=== PATIENT | female | born 1945 | race Caucasian/White ===

== ENCOUNTER 2017-09-25 17:53 | Inpatient (IN) | payer MEDICARE, OTHER ==
[2017-09-25] MEDS ORDERED: SODIUM CHLORIDE 0.9% 1,000 ML IV STA (18:16)
[2017-09-25] MEDS ORDERED: ONDANSETRON 4 MG/2 ML VIAL IVP STA ×2 (18:17→21:13)
--- NOTE | 2017-09-25 18:18 | ED ---
General Adult HPI - General Source: patient, EMS, RN notes reviewed Mode of arrival: EMS Limitations: no limitations <Iker Prescott - Last Filed: 09/25/17 19:49> <Ector Carrillo - Last Filed: 09/25/17 21:18> - General Chief complaint: Nausea/Vomiting/Diarrhea Stated complaint: Nausea/Vomiting Time Seen by Provider: 09/25/17 18:09 - History of Present Illness Initial comments: Patient 72-year-old female who presents emergency room today with a chief complaint of nausea vomiting. 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 Has had this for several years. States it's working well. Denies any specific abdominal pain. Was given nausea medication by EMS. She admits little improvement. She denies any other complaints or symptoms. Denies any other sick contacts at home. Patient denies any recent fever, chills , shortness of breath, chest pain, back pain, abdominal pain, nausea or vomiting , numbness or tingling, dysuria or hematuria, constipation or diarrhea, headaches or visual changes, or any other complaints. (Iker Prescott) - Related Data Home Medications Medication Instructions Recorded Confirmed Naproxen Sodium [Aleve] 440 mg PO BID PRN 09/25/17 09/25/17 Allergies Allergy/AdvReac Type Severity Reaction Status Date / Time No Known Allergies Allergy Verified 09/25/17 19:35 Review of Systems ROS Other: All systems not noted in ROS Statement are negative. <Iker Prescott - Last Filed: 09/25/17 19:49> ROS Other: All systems not noted in ROS Statement are negative. <Ector Carrillo - Last Filed: 09/25/17 21:18> ROS Statement: Those systems with pertinent positive or pertinent negative responses have been documented in the HPI. Past Medical History Past Medical History: COPD, Hypertension Additional Past Medical History / Comment(s): colostomy "GI obstruction, ulcer. 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" History of Any Multi-Drug Resistant Organisms: None Reported Past Surgical History: Appendectomy, Cholecystectomy, Tonsillectomy Additional Past Surgical History / Comment(s): colostomy Past Psychological History: No Psychological Hx Reported Smoking Status: Current every day smoker Past Alcohol Use History: None Reported Past Drug Use History: None Reported - Past Family History Mother Family Medical History: Diabetes Mellitus, Hypertension Father Family Medical History: Diabetes Mellitus <Iker Prescott - Last Filed: 09/25/17 19:49> General Exam Limitations: no limitations <Ikre Prescott - Last Filed: 09/25/17 19:49> <Ector Carrillo - Last Filed: 09/25/17 21:18> - General Exam Comments Initial Comments: General: The patient is awake and alert, in no distress, and does not appear acutely ill. Eye: Pupils are equal, round and reactive to light, extra-ocular movements are intact. No nystagmus. There is normal conjunctiva bilaterally. No signs of icterus. Ears, nose, mouth and throat: There are moist mucous membranes and no oral lesions. Neck: The neck is supple, there is no tenderness or JVD. Cardiovascular: There is a regular rate and rhythm. No murmur, rub or gallop is appreciated. Respiratory: Lungs are clear to auscultation, respirations are non-labored, breath sounds are equal. No wheezes, stridor, rales, or rhonchi. Gastrointestinal: Soft, non-distended, non-tender abdomen without masses or organomegaly noted. Colostomy located on the left functioning no sign of redness or swelling around it. There is no rebound or guarding present. No CVA tenderness. Bowel sounds are unremarkable. Musculoskeletal: Normal ROM, no tenderness. Strength 5/5. Sensation intact. Pulses equal bilaterally 2+. Neurological: A&O x 3. CN II-XII intact, There are no obvious motor or sensory deficits. Coordination appears grossly intact. Speech is normal. Skin: Skin is warm and dry and no rashes or lesions are noted. Psychiatric: Cooperative, appropriate mood & affect, normal judgment. (Iker Prescott) Course <Iker Prescott - Last Filed: 09/25/17 19:49> <Ector Carrillo - Last Filed: 09/25/17 21:18> Vital Signs 09/25/17 09/25/17 18:08 19:15 Temperature 97.2 F L Pulse Rate 97 94 Respiratory 18 18 Rate Blood Pressure 156/72 156/90 O2 Sat by Pulse 95 100 Oximetry - Reevaluation(s) Reevaluation #1: 09/25/17 19:50 Case discussed and signed out to Dr Carrillo. Patient's labs currently pending. ( Iker Prescott) EKG Findings - EKG Comments: EKG Findings:: EKG performed at 1920: A 12-lead EKG was performed and interpreted by me as showing the following: Rate is 97, and rhythm is normal sinus. There are normal QRS complexes and normal R-wave progression. ST segments have no elevation or depression, and NV segments appear normal. <Iker Prescott - Last Filed: 09/25/17 19:49> Medical Decision Making <Iker Prescott - Last Filed: 09/25/17 19:49> - Lab Data Result diagrams: 09/25/17 19:51 09/25/17 00:34 <Ector Carrillo - Last Filed: 09/25/17 21:18> - Medical Decision Making Medical decision making; 71-year-old female was a colostomy. She been having nausea and vomiting for several days. Patient complains of feeling weak. The patient's labs show white count 16,000. Her sodium is only 114 chloride 70. Potassium 3.3 and CO2 is 33. Amylase lipase normal limits. Normal plasma lactic acid. BUN 15 creatinine 0.4 and GFR greater than 60. Patient's glucose 95. Troponin less than 0.012. Patient is receiving rehydration including extra potassium. Patient states that she's having stool through the colostomy. Patient states since having the colostomy she does not have stool per rectum. Patient be admitted to Dr. Mora are on-call for Dr. Adorno (Ector Carrillo) - Lab Data Lab Results 09/25/17 09/25/17 09/25/17 Range/Units 00:34 19:51 19:51 WBC 16.0 H (3.8-10.6) k/uL RBC 4.81 (3.80-5.40) m/uL Hgb 12.6 (11.4-16.0) gm/dL Hct 38.0 (34.0-46.0) % MCV 79.1 L (80.0-100.0) fL MCH 26.2 (25.0-35.0) pg MCHC 33.1 (31.0-37.0) g/dL RDW 14.6 (11.5-15.5) % Plt Count 278 (150-450) k/uL Neutrophils % 86 % Lymphocytes % 6 % Monocytes % 6 % Eosinophils % 1 % Basophils % 0 % Neutrophils # 13.8 H (1.3-7.7) k/uL Lymphocytes # 0.9 L (1.0-4.8) k/uL Monocytes # 1.0 (0-1.0) k/uL Eosinophils # 0.2 (0-0.7) k/uL Basophils # 0.0 (0-0.2) k/uL Sodium 114 L* (137-145) mmol/L Potassium 3.3 L (3.5-5.1) mmol/L Chloride 70 L* (98-107) mmol/L Carbon Dioxide 33 H (22-30) mmol/L Anion Gap 11 mmol/L BUN 15 (7-17) mg/dL Creatinine 0.40 L (0.52-1.04) mg/dL Est GFR (MDRD) Af Amer >60 (>60 ml/min/1.73 sqM) Est GFR (MDRD) Non-Af >60 (>60 ml/min/1.73 sqM) Glucose 95 (74-99) mg/dL Plasma Lactic Acid Francisco 0.6 L (0.7-2.0) mmol/L Calcium 8.4 (8.4-10.2) mg/dL Total Bilirubin 1.3 (0.2-1.3) mg/dL AST 18 (14-36) U/L ALT 16 (9-52) U/L Alkaline Phosphatase 104 (38-126) U/L Total Creatine Kinase (30-135) U/L CK-MB (CK-2) (0.0-2.4) ng/mL CK-MB (CK-2) Rel Index Troponin I (0.000-0.034) ng/mL Total Protein 5.6 L (6.3-8.2) g/dL Albumin 2.9 L (3.5-5.0) g/dL Amylase <30 L (30-110) U/L Lipase <10 L (23-300) U/L 09/25/17 Range/Units 19:51 WBC (3.8-10.6) k/uL RBC (3.80-5.40) m/uL Hgb (11.4-16.0) gm/dL Hct (34.0-46.0) % MCV (80.0-100.0) fL MCH (25.0-35.0) pg MCHC (31.0-37.0) g/dL RDW (11.5-15.5) % Plt Count (150-450) k/uL Neutrophils % % Lymphocytes % % Monocytes % % Eosinophils % % Basophils % % Neutrophils # (1.3-7.7) k/uL Lymphocytes # (1.0-4.8) k/uL Monocytes # (0-1.0) k/uL Eosinophils # (0-0.7) k/uL Basophils # (0-0.2) k/uL Sodium (137-145) mmol/L Potassium (3.5-5.1) mmol/L Chloride (98-107) mmol/L Carbon Dioxide (22-30) mmol/L Anion Gap mmol/L BUN (7-17) mg/dL Creatinine (0.52-1.04) mg/dL Est GFR (MDRD) Af Amer (>60 ml/min/1.73 sqM) Est GFR (MDRD) Non-Af (>60 ml/min/1.73 sqM) Glucose (74-99) mg/dL Plasma Lactic Acid Francisco (0.7-2.0) mmol/L Calcium (8.4-10.2) mg/dL Total Bilirubin (0.2-1.3) mg/dL AST (14-36) U/L ALT (9-52) U/L Alkaline Phosphatase (38-126) U/L Total Creatine Kinase 31 (30-135) U/L CK-MB (CK-2) 1.7 (0.0-2.4) ng/mL CK-MB (CK-2) Rel Index 5.5 Troponin I <0.012 (0.000-0.034) ng/mL Total Protein (6.3-8.2) g/dL Albumin (3.5-5.0) g/dL Amylase (30-110) U/L Lipase (23-300) U/L Disposition <Iker Prescott - Last Filed: 09/25/17 19:49> <Ector Carrillo - Last Filed: 09/25/17 21:18> Clinical Impression: Electrolyte imbalance, Nausea and vomiting Disposition: ADMITTED IP TO THIS HOSP Condition: Fair Referrals: Maggy Adorno DO [Primary Care Provider] - 1-2 days
--- NOTE | 2017-09-25 19:36 | XR ---
EXAMINATION TYPE: XR KUB DATE OF EXAM: 09/25/2017 7:31 PM CLINICAL HISTORY: Abdominal pain TECHNIQUE: Single upright image of the abdomen is obtained. COMPARISON: 05/15/2016. FINDINGS: Cholecystectomy clips reside within the right upper quadrant. Scattered gas is seen in non- distended small bowel loops. Gas and fecal material is seen in non-distended colon. Distal colonic ai r-fluid level is seen with copious amount of stool within the distal sigmoid colon and rectum. There is no visceromegaly, pneumoperitoneum, or abnormal calcification appreciated. The lung bases are geraldine r and the osseous structures are intact. IMPRESSION: Skull base amount of stool within the distal sigmoid colon and rectum without proximal di latation to suggest obstruction. Constipation/rectal fecal impaction is suspected.
[2017-09-25 20:11] LABS: Basophils % (A) 0 %; Eosinophils # (A) 0.2 k/uL (0-0.7); Eosinophils % (A) 1 %; HGB 12.6 gm/dL (11.4-16.0); Lymphocytes # (A) 0.9 k/uL (1.0-4.8); Lymphocytes % (A) 6 %; MCH 26.2 pg (25.0-35.0); MCHC 33.1 g/dL (31.0-37.0); MCV 79.1 fL (80.0-100.0); Mean Platelet Volume 6.8; Monocytes % (A) 6 %; Neutrophils # (A) 13.8 k/uL (1.3-7.7); Neutrophils % (A) 86 %; Platelet Count 278 k/uL (150-450); RBC 4.81 m/uL (3.80-5.40); RDW 14.6 % (11.5-15.5)
[2017-09-25 20:31] LABS: Creatine Kinase 31 U/L (30-135)
[2017-09-25 20:33] LABS: ALT 16 U/L (9-52); AST 18 U/L (14-36); Albumin 2.9 g/dL (3.5-5.0); Alkaline Phosphatase 104 U/L (38-126); Amylase <30 U/L (30-110); Anion Gap 11 mmol/L; Blood Urea Nitrogen 15 mg/dL (7-17); Calcium 8.4 mg/dL (8.4-10.2); Carbon Dioxide 33 mmol/L (22-30); Glucose 95 mg/dL (74-99); Lipase <10 U/L (23-300); Potassium 3.3 mmol/L (3.5-5.1); Total Bilirubin 1.3 mg/dL (0.2-1.3); Total Protein 5.6 g/dL (6.3-8.2)
[2017-09-25 20:43] LABS: Creatine Kinase MB 1.7 ng/mL (0.0-2.4); Troponin I <0.012 ng/mL (0.000-0.034)
[2017-09-25 20:53] LABS: Chloride 70 mmol/L (98-107); Sodium 114 mmol/L (137-145)
[2017-09-25] MEDS ORDERED: HYDROmorphone 0.5 MG/0.5 ML SYRINGE IVP STA (21:12)
[2017-09-25] MEDS ORDERED: POTASSIUM CHLORIDE 20 MEQ in WATER FOR INJECTION 1 100ML.BAG IVPB STA (21:16)
[2017-09-25] MEDS ORDERED: NALOXONE 0.4 MG/ML 1 ML VIAL IV PRN (21:18)
[2017-09-25] MEDS ORDERED: ONDANSETRON 4 MG/2 ML VIAL IVP PRN (21:18)
[2017-09-26] MEDS: PANTOPRAZOLE 40 MG/10 ML VIAL IV SCH ×2 (01:06→08:37)
[2017-09-26] MEDS: SODIUM CHLORIDE 0.9% 1,000 ML IV SCH ×3 (01:10→16:02)
[2017-09-26 01:28] LABS: Anion Gap 9 mmol/L; Blood Urea Nitrogen 15 mg/dL (7-17); Calcium 8.4 mg/dL (8.4-10.2); Carbon Dioxide 33 mmol/L (22-30); Glucose 91 mg/dL (74-99); Potassium 3.8 mmol/L (3.5-5.1)
[2017-09-26 01:32] LABS: Sodium 114 mmol/L (137-145)
[2017-09-26 01:33] LABS: Chloride 72 mmol/L (98-107)
[2017-09-26 01:38] VITALS: BMI 27.4
[2017-09-26 06:31] LABS: Basophils % (A) 0 %; Eosinophils % (A) 0 %; HCT 37.5 % (34.0-46.0); HGB 12.4 gm/dL (11.4-16.0); Lymphocytes # (A) 0.8 k/uL (1.0-4.8); Lymphocytes % (A) 6 %; MCH 26.7 pg (25.0-35.0); MCV 80.9 fL (80.0-100.0); Mean Platelet Volume 7.1; Monocytes # (A) 0.9 k/uL (0-1.0); Monocytes % (A) 7 %; Neutrophils # (A) 11.8 k/uL (1.3-7.7); Neutrophils % (A) 86 %; Platelet Count 331 k/uL (150-450); RBC 4.63 m/uL (3.80-5.40); WBC 13.8 k/uL (3.8-10.6)
[2017-09-26 07:10] LABS: Appearance,Urine Clear (Clear); Bacteria,Urine Rare /hpf; Bilirubin,Urine Negative (Negative); Blood,Urine Negative (Negative); Color,Urine Yellow; Glucose,Urine (UA) Negative (Negative); Ketones,Urine 3+ (Negative); Leukocyte Esterase,Urine Moderate (Negative); Mucus,Urine Moderate /hpf; Nitrite,Urine Negative (Negative); PH, Urine 6.5 (5.0-8.0); Protein,Urine 1+ (Negative); RBC,Urine 3 /hpf (0-5); Specific Gravity,Urine 1.019 (1.001-1.035); Squamous Epithelial Cell,Urine 2 /hpf (0-4); WBC,Urine 29 /hpf (0-5)
[2017-09-26 09:54] LABS: Anion Gap 8 mmol/L; Blood Urea Nitrogen 12 mg/dL (7-17); Calcium 8.1 mg/dL (8.4-10.2); Carbon Dioxide 31 mmol/L (22-30); Glucose 78 mg/dL (74-99); Potassium 3.7 mmol/L (3.5-5.1)
[2017-09-26 10:04] LABS: Chloride 76 mmol/L (98-107); Sodium 115 mmol/L (137-145)
--- NOTE | 2017-09-26 11:16 | P.NPCON ---
History of Present Illness - Reason for Consult hyponatremia - History of Present Illness Reason for consultation: Hyponatremia History of present illness: Patient is a 72-year-old female seen in renal consultation for hyponatremia. Patient presented to the hospital early childhood special educator on September 25 and her sodium level was noted to be low at 114. She was also hypokalemic with potassium level of 3.3. Patient presented to the hospital with nausea and vomiting going on for about 3 days prior to admission. Patient states she was able to eat much but she was drinking about 4 glasses of water every day. She has been voiding. No hematuria or dysuria. She denies any prior history of kidney disease. She did receive a normal saline bolus and was subsequently started on normal saline at 100 mL an hour. Sodium level has only come up to 115 as of this morning. She is currently on a clear liquid diet. She denies any further vomiting. Her creatinine is stable at 0.32 today. Potassium level is up to 3.7. I don't see any diuretics and her home medications. Patient does have a colostomy in place and denies any significant watery output. Patient states is more like formed stool. Vital signs are stable. General: The patient appeared well nourished and normally developed. HEENT: Head exam is unremarkable. Neck is without jugular venous distension. LUNGS: Lungs are clear to auscultation and percussion. Breath sounds decreased. HEART: Rate and Rhythm are regular. First and second heart sounds normal. No murmurs, rubs or gallops. ABDOMEN: Abdominal exam reveals normal bowel sounds. Non-tender and non- distended. No evidence of peritonitis. EXTREMITITES: No clubbing, cyanosis, or edema. Past Medical History Past Medical History: COPD, Hypertension Additional Past Medical History / Comment(s): colostomy "GI obstruction, ulcer. 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" History of Any Multi-Drug Resistant Organisms: None Reported Past Surgical History: Appendectomy, Cholecystectomy, Tonsillectomy Additional Past Surgical History / Comment(s): colostomy Past Psychological History: No Psychological Hx Reported Smoking Status: Current every day smoker Past Alcohol Use History: None Reported Past Drug Use History: None Reported - Past Family History Mother Family Medical History: Diabetes Mellitus, Hypertension Father Family Medical History: Diabetes Mellitus Medications and Allergies Home Medications Medication Instructions Recorded Confirmed Type Naproxen Sodium [Aleve] 440 mg PO BID PRN 09/25/17 09/25/17 History Allergies Allergy/AdvReac Type Severity Reaction Status Date / Time No Known Allergies Allergy Verified 09/25/17 19:35 Physical Exam Vitals: Vital Signs Temp Pulse Pulse Resp BP BP Pulse Ox 09/26/17 04:00 97.8 F 80 20 162/92 97 09/26/17 00:00 96.5 F L 87 20 157/96 97 09/25/17 22:37 96.5 F L 87 20 157/91 97 09/25/17 22:00 89 18 138/81 96 09/25/17 19:15 94 18 156/90 100 09/25/17 18:08 97.2 F L 97 18 156/72 95 Intake and Output 09/25/17 09/26/17 09/26/17 22:59 06:59 14:59 Intake Total 940 Output Total 300 Balance 640 Intake: IV 240 Invasive Line 1 240 Intake, IV Titration 700 Amount Sodium Chloride 0.9% 1, 700 000 ml @ 100 mls/hr IV . Q10H [facility] Rx#:[id number] Output: Urine 300 Other: Voiding Method Toilet # Voids 0 Weight 79.5 kg 72.7 kg Results - Lab Results Most recent lab results Calcium 8.1 mg/dL (8.4-10.2) L 09/26/17 09:14 09/26/17 05:57 09/26/17 09:14 Assessment and Plan Plan: Assessment: #1. Hypovolemic hyponatremia secondary to vomiting and poor oral intake. Furthermore she's been drinking quite a bit of water. Sodium level was 114 on admission and is up to 115 this morning. She is currently on a clear liquid diet. #2. Hyperkalemia from poor nutritional status and vomiting leading to renal potassium wasting. Improved post replacement. #3. Pyuria. #4. Nausea and vomiting possibly related to gastroenteritis. Plan: Continue normal saline to be run at 100 mL an hour. Check urine sodium, serum and urine osmolality. Check urine culture. Check sodium level at 2 PM today. Gen. surgery following. Diet to be advanced per their recommendations. Thank you for the consultation. I will continue to follow the patient with you during her hospital stay.
--- NOTE | 2017-09-26 11:42 | P.HPIM ---
History of Present Illness H&P Date: 09/26/17 Chief Complaint: Vomiting and diarrhea 2 days This is a 72-year-old female, patient of Dr. Adorno. She has a known past medical history of hypertension, COPD, nicotine dependence, colostomy due to a previous bowel obstruction. She presents to the emergency room with complaints of vomiting and diarrhea for the past 2 days with poor oral intake. Patient is found to have a sodium level of 114. She's been placed on IV fluids. She does report she's had low sodium in the past when she had another stomach virus with vomiting and diarrhea. Nephrology and surgical service has been consulted. White count was 16 down to 13.8. Sodium has increased from 114 to 1:15. Her last colonoscopy and EGD were about a year ago. Patient reports there is no abnormal results. Patient denies any abdominal pain. Denies any fever chills or sweats. Denies any recent sick contacts or recent traveling or antibiotic use. She reports multiple episodes of vomiting and diarrhea over the last 2 days. No blood present. Denies any chest pain or shortness of breath. Denies any burning with urination. And feels that she is urinating adequately. KUB x- ray showed evidence of constipation. Review of Systems Please refer to HPI otherwise unremarkable Past Medical History Past Medical History: COPD, Hypertension Additional Past Medical History / Comment(s): colostomy "GI obstruction, ulcer. 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" History of Any Multi-Drug Resistant Organisms: None Reported Past Surgical History: Appendectomy, Cholecystectomy, Tonsillectomy Additional Past Surgical History / Comment(s): colostomy Past Psychological History: No Psychological Hx Reported Smoking Status: Current every day smoker Past Alcohol Use History: None Reported Past Drug Use History: None Reported - Past Family History Mother Family Medical History: Diabetes Mellitus, Hypertension Father Family Medical History: Diabetes Mellitus Medications and Allergies Home Medications Medication Instructions Recorded Confirmed Type Naproxen Sodium [Aleve] 440 mg PO BID PRN 09/25/17 09/25/17 History Allergies Allergy/AdvReac Type Severity Reaction Status Date / Time No Known Allergies Allergy Verified 09/25/17 19:35 Physical Exam Vitals: Vital Signs Temp Pulse Pulse Resp BP BP Pulse Ox 09/26/17 04:00 97.8 F 80 20 162/92 97 09/26/17 00:00 96.5 F L 87 20 157/96 97 09/25/17 22:37 96.5 F L 87 20 157/91 97 09/25/17 22:00 89 18 138/81 96 09/25/17 19:15 94 18 156/90 100 09/25/17 18:08 97.2 F L 97 18 156/72 95 Intake and Output 09/25/17 09/26/17 09/26/17 22:59 06:59 14:59 Intake Total 940 Output Total 300 Balance 640 Intake: IV 240 Invasive Line 1 240 Intake, IV Titration 700 Amount Sodium Chloride 0.9% 1, 700 000 ml @ 100 mls/hr IV . Q10H [facility] Rx#:[id number] Output: Urine 300 Other: Voiding Method Toilet # Voids 0 Weight 79.5 kg 72.7 kg Head normocephalic Neck supple Lungs clear to auscultation bilaterally no wheezing or crackles Heart regular rate and rhythm S1-S2, no rub or gallop Abdomen is soft nontender nondistended positive bowel sounds no hepatosplenomegaly. Stool present in the colostomy bag slightly watery brown Extremities no edema Neuro alert and orientated to 3. Hard of hearing Results CBC & Chem 7: 09/26/17 05:57 09/26/17 09:14 Labs: Abnormal Lab Results - Last 24 Hours (Table) 09/25/17 09/25/17 09/25/17 Range/Units 00:34 19:51 19:51 WBC 16.0 H (3.8-10.6) k/uL MCV 79.1 L (80.0-100.0) fL Neutrophils # 13.8 H (1.3-7.7) k/uL Lymphocytes # 0.9 L (1.0-4.8) k/uL Sodium 114 L* (137-145) mmol/L Potassium 3.3 L (3.5-5.1) mmol/L Chloride 70 L* (98-107) mmol/L Carbon Dioxide 33 H (22-30) mmol/L Creatinine 0.40 L (0.52-1.04) mg/dL Plasma Lactic Acid [place] 0.6 L (0.7-2.0) mmol/L Calcium (8.4-10.2) mg/dL Total Protein 5.6 L (6.3-8.2) g/dL Albumin 2.9 L (3.5-5.0) g/dL Amylase <30 L (30-110) U/L Lipase <10 L (23-300) U/L Urine Protein (Negative) Urine Ketones (Negative) Ur Leukocyte Esterase (Negative) Urine WBC (0-5) /hpf Urine Bacteria (None) /hpf Urine Mucus (None) /hpf 09/26/17 09/26/17 09/26/17 Range/Units 00:55 05:00 05:57 WBC 13.8 H (3.8-10.6) k/uL MCV (80.0-100.0) fL Neutrophils # 11.8 H (1.3-7.7) k/uL Lymphocytes # 0.8 L (1.0-4.8) k/uL Sodium 114 L* (137-145) mmol/L Potassium (3.5-5.1) mmol/L Chloride 72 L* (98-107) mmol/L Carbon Dioxide 33 H (22-30) mmol/L Creatinine 0.40 L (0.52-1.04) mg/dL Plasma Lactic Acid Francisco (0.7-2.0) mmol/L Calcium (8.4-10.2) mg/dL Total Protein (6.3-8.2) g/dL Albumin (3.5-5.0) g/dL Amylase (30-110) U/L Lipase (23-300) U/L Urine Protein 1+ H (Negative) Urine Ketones 3+ H (Negative) Ur Leukocyte Esterase Moderate H (Negative) Urine WBC 29 H (0-5) /hpf Urine Bacteria Rare H (None) /hpf Urine Mucus Moderate H (None) /hpf 09/26/17 Range/Units 09:14 WBC (3.8-10.6) k/uL MCV (80.0-100.0) fL Neutrophils # (1.3-7.7) k/uL Lymphocytes # (1.0-4.8) k/uL Sodium 115 L* (137-145) mmol/L Potassium (3.5-5.1) mmol/L Chloride 76 L* (98-107) mmol/L Carbon Dioxide 31 H (22-30) mmol/L Creatinine 0.32 L (0.52-1.04) mg/dL Plasma Lactic Acid Francisco (0.7-2.0) mmol/L Calcium 8.1 L (8.4-10.2) mg/dL Total Protein (6.3-8.2) g/dL Albumin (3.5-5.0) g/dL Amylase (30-110) U/L Lipase (23-300) U/L Urine Protein (Negative) Urine Ketones (Negative) Ur Leukocyte Esterase (Negative) Urine WBC (0-5) /hpf Urine Bacteria (None) /hpf Urine Mucus (None) /hpf Thrombosis Risk Factor Assmnt - Choose All That Apply Any of the Below Risk Factors Present?: Yes Each Risk Factor Represents 2 Points: Age 61-74 years Thrombosis Risk Factor Assessment Total Risk Factor Score: 2 Thrombosis Risk Factor Assessment Level: Low Risk Assessment and Plan Assessment: 1. Hypovolemic hyponatremia secondary to vomiting and poor oral intake. Sodium level on admission 114 up to 115. Continue normal saline 100 mL an hour. Nephrology has been consulted and appreciate their input. 2. Vomiting and diarrhea: Possibly related to viral gastroenteritis. Continue to monitor. Continue with IV fluids for hydration. Surgical service has been consulted. Continue with Zofran as needed. Check stool for C. diff 3. Hypokalemia due to poor oral intake and vomiting. Potassium has normalized with replacement 4. Pyuria: Send urine for culture and sensitivity. Patient is asymptomatic for UTI. Hesitant to start antibiotics with diarrhea present 5. History of small bowel obstruction status post bowel resection and colostomy placement. 6. Previous history of gallstone pancreatitis per patient. She status post cholecystectomy 7. Nicotine dependence discussed smoking cessation. Patient reports only smoking a few cigarettes a day. We'll add nicotine patch GI prophylaxis Protonix and DVT prophylaxis Lovenox Time with Patient: Greater than 30 (Greater than 50% of the total time spent in counseling and coordination of care.I performed an examination of the patient and discussed their management with the physician Scheduling Agent. I have reviewed the Physician Scheduling Agent's notes and agree with the documented findings and plan of care)
[2017-09-26] MEDS ORDERED: NICOTINE 7MG/24HR PATCH TRANSDERM SCH (11:45)
--- NOTE | 2017-09-26 14:11 | P.GSCN ---
History of Present Illness Consult date: 09/26/17 Reason for Consult: Abdominal pain History of present illness: Cyst 72-year-old female who is well-known to myself. Patient's had a previous exposure laparotomy with colostomy and small bowel resection performed in April 2016. Patient was admitted to the hospital for symptoms of gastroenteritis. Patient some nausea vomiting and abdominal pain. The patient states that her nausea and abdominal pain of resolved. She has some liquid stool in her colostomy. Past Medical History Past Medical History: COPD, Hypertension Additional Past Medical History / Comment(s): colostomy "GI obstruction, ulcer. 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" History of Any Multi-Drug Resistant Organisms: None Reported Past Surgical History: Appendectomy, Cholecystectomy, Tonsillectomy Additional Past Surgical History / Comment(s): colostomy Past Psychological History: No Psychological Hx Reported Smoking Status: Current every day smoker Past Alcohol Use History: None Reported Past Drug Use History: None Reported - Past Family History Mother Family Medical History: Diabetes Mellitus, Hypertension Father Family Medical History: Diabetes Mellitus Medications and Allergies Home Medications Medication Instructions Recorded Confirmed Type Naproxen Sodium [Aleve] 440 mg PO BID PRN 09/25/17 09/25/17 History Allergies Allergy/AdvReac Type Severity Reaction Status Date / Time No Known Allergies Allergy Verified 09/25/17 19:35 Surgical - Exam Vital Signs Temp Pulse Resp BP Pulse Ox 97.2 F L 97 18 156/72 95 09/25/17 18:08 09/25/17 18:08 09/25/17 18:08 09/25/17 18:08 09/25/17 18:08 - General well developed, no distress - Eyes PERRL - ENT normal pinna - Neck no masses - Respiratory normal expansion - Cardiovascular Rhythm: regular - Abdomen Colostomy with liquid stool in the colostomy today. There is no significant tenderness. There is no rebound or guarding. Abdomen: soft, non tender Results - Labs 09/26/17 05:57 09/26/17 09:14 Abnormal Lab Results - Last 24 Hours (Table) 09/25/17 09/25/17 09/25/17 Range/Units 00:34 19:51 19:51 WBC 16.0 H (3.8-10.6) k/uL MCV 79.1 L (80.0-100.0) fL Neutrophils # 13.8 H (1.3-7.7) k/uL Lymphocytes # 0.9 L (1.0-4.8) k/uL Sodium 114 L* (137-145) mmol/L Potassium 3.3 L (3.5-5.1) mmol/L Chloride 70 L* (98-107) mmol/L Carbon Dioxide 33 H (22-30) mmol/L Creatinine 0.40 L (0.52-1.04) mg/dL Osmolality (280-301) mosm/kg Plasma Lactic Acid Francisco 0.6 L (0.7-2.0) mmol/L Calcium (8.4-10.2) mg/dL Total Protein 5.6 L (6.3-8.2) g/dL Albumin 2.9 L (3.5-5.0) g/dL Amylase <30 L (30-110) U/L Lipase <10 L (23-300) U/L Urine Protein (Negative) Urine Ketones (Negative) Ur Leukocyte Esterase (Negative) Urine WBC (0-5) /hpf Urine Bacteria (None) /hpf Urine Mucus (None) /hpf 09/26/17 09/26/17 09/26/17 Range/Units 00:55 05:00 05:57 WBC 13.8 H (3.8-10.6) k/uL MCV (80.0-100.0) fL Neutrophils # 11.8 H (1.3-7.7) k/uL Lymphocytes # 0.8 L (1.0-4.8) k/uL Sodium 114 L* (137-145) mmol/L Potassium (3.5-5.1) mmol/L Chloride 72 L* (98-107) mmol/L Carbon Dioxide 33 H (22-30) mmol/L Creatinine 0.40 L (0.52-1.04) mg/dL Osmolality (280-301) mosm/kg Plasma Lactic Acid Francisco (0.7-2.0) mmol/L Calcium (8.4-10.2) mg/dL Total Protein (6.3-8.2) g/dL Albumin (3.5-5.0) g/dL Amylase (30-110) U/L Lipase (23-300) U/L Urine Protein 1+ H (Negative) Urine Ketones 3+ H (Negative) Ur Leukocyte Esterase Moderate H (Negative) Urine WBC 29 H (0-5) /hpf Urine Bacteria Rare H (None) /hpf Urine Mucus Moderate H (None) /hpf 09/26/17 09/26/17 Range/Units 09:14 09:14 WBC (3.8-10.6) k/uL MCV (80.0-100.0) fL Neutrophils # (1.3-7.7) k/uL Lymphocytes # (1.0-4.8) k/uL Sodium 115 L* (137-145) mmol/L Potassium (3.5-5.1) mmol/L Chloride 76 L* (98-107) mmol/L Carbon Dioxide 31 H (22-30) mmol/L Creatinine 0.32 L (0.52-1.04) mg/dL Osmolality 235 L* (280-301) mosm/kg Plasma Lactic Acid Francisco (0.7-2.0) mmol/L Calcium 8.1 L (8.4-10.2) mg/dL Total Protein (6.3-8.2) g/dL Albumin (3.5-5.0) g/dL Amylase (30-110) U/L Lipase (23-300) U/L Urine Protein (Negative) Urine Ketones (Negative) Ur Leukocyte Esterase (Negative) Urine WBC (0-5) /hpf Urine Bacteria (None) /hpf Urine Mucus (None) /hpf Diabetes panel 09/25/17 09/26/17 09/26/17 Range/Units 00:34 00:55 09:14 Sodium 114 L* 114 L* 115 L* (137-145) mmol/L Potassium 3.3 L 3.8 3.7 (3.5-5.1) mmol/L Chloride 70 L* 72 L* 76 L* (98-107) mmol/L Carbon Dioxide 33 H 33 H 31 H (22-30) mmol/L BUN 15 15 12 (7-17) mg/dL Creatinine 0.40 L 0.40 L 0.32 L (0.52-1.04) mg/dL Glucose 95 91 78 (74-99) mg/dL Calcium 8.4 8.4 8.1 L (8.4-10.2) mg/dL AST 18 (14-36) U/L ALT 16 (9-52) U/L Alkaline Phosphatase 104 (38-126) U/L Total Protein 5.6 L (6.3-8.2) g/dL Albumin 2.9 L (3.5-5.0) g/dL Calcium panel 09/25/17 09/26/17 09/26/17 Range/Units 00:34 00:55 09:14 Calcium 8.4 8.4 8.1 L (8.4-10.2) mg/dL Albumin 2.9 L (3.5-5.0) g/dL Pituitary panel 09/25/17 09/26/17 09/26/17 Range/Units 00:34 00:55 09:14 Sodium 114 L* 114 L* 115 L* (137-145) mmol/L Potassium 3.3 L 3.8 3.7 (3.5-5.1) mmol/L Chloride 70 L* 72 L* 76 L* (98-107) mmol/L Carbon Dioxide 33 H 33 H 31 H (22-30) mmol/L BUN 15 15 12 (7-17) mg/dL Creatinine 0.40 L 0.40 L 0.32 L (0.52-1.04) mg/dL Glucose 95 91 78 (74-99) mg/dL Calcium 8.4 8.4 8.1 L (8.4-10.2) mg/dL Adrenal panel 09/25/17 09/26/17 09/26/17 Range/Units 00:34 00:55 09:14 Sodium 114 L* 114 L* 115 L* (137-145) mmol/L Potassium 3.3 L 3.8 3.7 (3.5-5.1) mmol/L Chloride 70 L* 72 L* 76 L* (98-107) mmol/L Carbon Dioxide 33 H 33 H 31 H (22-30) mmol/L BUN 15 15 12 (7-17) mg/dL Creatinine 0.40 L 0.40 L 0.32 L (0.52-1.04) mg/dL Glucose 95 91 78 (74-99) mg/dL Calcium 8.4 8.4 8.1 L (8.4-10.2) mg/dL Total Bilirubin 1.3 (0.2-1.3) mg/dL AST 18 (14-36) U/L ALT 16 (9-52) U/L Alkaline Phosphatase 104 (38-126) U/L Total Protein 5.6 L (6.3-8.2) g/dL Albumin 2.9 L (3.5-5.0) g/dL - Imaging Abdominal x-ray: report reviewed (Large amount of liquid stool in sigmoid colon) Assessment and Plan Assessment: Resolving gastroenteritis. Patient has no significant abdominal pain. She will start a diet. We will follow with you.
[2017-09-26] MEDS: HYDROmorphone 2 MG/ML 1 ML SYRINGE IVP PRN ×3 (15:35→23:52)
[2017-09-26 21:24] LABS: Anion Gap 8 mmol/L; Blood Urea Nitrogen 10 mg/dL (7-17); Calcium 8.2 mg/dL (8.4-10.2); Carbon Dioxide 32 mmol/L (22-30); Glucose 83 mg/dL (74-99); Potassium 3.5 mmol/L (3.5-5.1)
[2017-09-26 21:31] LABS: Chloride 75 mmol/L (98-107); Sodium 115 mmol/L (137-145)
[2017-09-26] MEDS ORDERED: SODIUM CHLORIDE 3%(HYPERTONIC) 500 ML IV SCH (22:00)
[2017-09-26 22:51] LABS: Glucose,Whole Blood 88 mg/dL (75-99)
[2017-09-26] MEDS ORDERED: SODIUM CHLORIDE 3%(HYPERTONIC) 500 ML IV ONE (23:05)
[2017-09-27] MEDS: HYDROmorphone 2 MG/ML 1 ML SYRINGE IVP PRN (02:54)
[2017-09-27] MEDS: SODIUM CHLORIDE 0.9% 1,000 ML IV SCH (05:16)
[2017-09-27 05:17] VITALS: TEMP 98.8
[2017-09-27 05:33] LABS: Basophils % (A) 0 %; Eosinophils % (A) 0 %; HCT 38.3 % (34.0-46.0); HGB 12.2 gm/dL (11.4-16.0); Lymphocytes # (A) 0.7 k/uL (1.0-4.8); Lymphocytes % (A) 7 %; MCH 25.8 pg (25.0-35.0); MCV 80.7 fL (80.0-100.0); Mean Platelet Volume 6.6; Monocytes # (A) 0.7 k/uL (0-1.0); Monocytes % (A) 8 %; Neutrophils # (A) 7.8 k/uL (1.3-7.7); Neutrophils % (A) 83 %; Platelet Count 329 k/uL (150-450); RBC 4.74 m/uL (3.80-5.40); RDW 13.3 % (11.5-15.5); WBC 9.4 k/uL (3.8-10.6)
[2017-09-27 05:35] LABS: Anion Gap 9 mmol/L; Blood Urea Nitrogen 9 mg/dL (7-17); Calcium 8.3 mg/dL (8.4-10.2); Carbon Dioxide 30 mmol/L (22-30); Glucose 78 mg/dL (74-99); Magnesium 1.5 mg/dL (1.6-2.3); Phosphorus 2.4 mg/dL (2.5-4.5); Potassium 3.5 mmol/L (3.5-5.1)
[2017-09-27 05:41] LABS: Chloride 79 mmol/L (98-107); Sodium 118 mmol/L (137-145)
[2017-09-27] MEDS ORDERED: Potassium Replacement Protocol 1 EACH MISC MISCELLANE PRN (05:52)
[2017-09-27] MEDS ORDERED: Magnesium Replacement Protocol 1 EACH MISC MISCELLANE PRN (05:53)
[2017-09-27] MEDS ORDERED: MAGNESIUM SULFATE-D5W PMX 1 GM in DEXTROSE/WATER 1 100ML.BAG IVPB SCH (06:00)
[2017-09-27 06:38] VITALS: BP 152/79; PULSE 103; RESP 19
[2017-09-27] MEDS ORDERED: EPINEPHrine 10 ML SYRINGE (0.1 MG/ML) ONE (06:47)
[2017-09-27] MEDS ORDERED: PROPOFOL 100 ML IV ONE (06:55)
[2017-09-27] MEDS ORDERED: NOREPINEPHRIN 4 MG-0.9% NS PMX 4 MG/250 ML ML IV ONE (07:07)
[2017-09-27] MEDS ORDERED: MORPHINE SULFATE 2 MG/ML SYRINGE ONE (07:23)
[2017-09-27] MEDS ORDERED: MORPHINE SULFATE 2 MG/ML SYRINGE IV PRN (07:23)
[2017-09-27] MEDS ORDERED: MORPHINE SULFATE (100 MG/2 ML) 100 MG in SODIUM CHLORIDE 0.9% 100 ML IV SCH (07:30)
[2017-09-27] MEDS ORDERED: POTASSIUM CHLORIDE ER 20 MEQ TAB.ER PO SCH (08:00)
[2017-09-27] MEDS ORDERED: ENOXAPARIN 40 MG/0.4 ML SYRINGE SQ SCH (09:00)
--- NOTE | 2017-11-24 12:34 | P.DS ---
Providers Date of admission: 09/25/17 21:19 Expected date of discharge: 09/27/17 Attending physician: David Isaac Consults: 09/25/17 21:18 Consult Physician Stat Consulting Provider: Kunal Sullivan Consult Reason/Comments: Nausea vomiting Do you want consulting provider notified?: Yes, Notify in am 09/26/17 09:33 Consult Physician Routine Consulting Provider: Golden Broussard Consult Reason/Comments: hyponatremia Do you want consulting provider notified?: Yes 09/26/17 22:43 Consult Physician Stat Consulting Provider: Juan Jose Chavira Consult Reason/Comments: electrolyte imbalance Do you want consulting provider notified?: Yes, Notify in am Primary care physician: [facility] Course: summary Preliminary cause of cardiac arrest 1. Hypovolemic hyponatremia secondary to vomiting and poor oral intake. Sodium level on admission 114 2. Vomiting and diarrhea: Possibly related to viral gastroenteritis. Continue to monitor. Continue with IV fluids for hydration. Surgical service has been consulted. Continue with Zofran as needed. Check stool for C. diff 3. Hypokalemia due to poor oral intake and vomiting. Potassium has normalized with replacement 4. Pyuria: Send urine for culture and sensitivity. Patient is asymptomatic for UTI. Hesitant to start antibiotics with diarrhea present 5. History of small bowel obstruction status post bowel resection and colostomy placement. 6. Previous history of gallstone pancreatitis per patient. She status post cholecystectomy 7. Nicotine dependence discussed smoking cessation. Patient reports only smoking a few cigarettes a day. We'll add nicotine patch Hospital course This is a 72-year-old female, patient of Dr. Adorno. She has a known past medical history of hypertension, COPD, nicotine dependence, colostomy due to a previous bowel obstruction. She presents to the emergency room with complaints of vomiting and diarrhea for the past 2 days with poor oral intake. Patient is found to have a sodium level of 114. She's been placed on IV fluids. She does report she's had low sodium in the past when she had another stomach virus with vomiting and diarrhea. Nephrology and surgical service has been consulted. White count was 16 down to 13.8. Sodium has increased from 114 to 1:15. Her last colonoscopy and EGD were about a year ago. Patient reports there is no abnormal results. Patient denies any abdominal pain. Denies any fever chills or sweats. Denies any recent sick contacts or recent traveling or antibiotic use. She reports multiple episodes of vomiting and diarrhea over the last 2 days. No blood present. Denies any chest pain or shortness of breath. Denies any burning with urination. And feels that she is urinating adequately. KUB x- ray showed evidence of constipation. Patient seen by nephrology and surgical service. Diet was advanced. Patient was initially on normal saline. Switched over to 3% saline and required a transfer to the ICU for the administration of the 3% saline. Sodium level was improving. While in the ICU patient tried to get out of bed and reported that she was dizzy. Please refer to the nurse's assessment metastatic dictated on . Apparently patient became more dizzy bradycardic and not responding to verbal stimulation. ADOLPH CHO was called. She had a PA rhythm and CPR was initiated. Patient required to be intubated. Unable to obtain blood pressure Levophed was started. Apparently the daughter was contacted and she requested CODE STATUS was changed to DO NOT RESUSCITATE. CPR was stopped. The patient was placed on comfort care. Patient on 09/27/2007 Please note that I am only dictating this report for Dr. Isaac. I was not present at the time patient's I performed an examination of the patient and discussed their management with the physician Matcher Offbearer. I have reviewed the Physician Matcher Offbearer's notes and agree with the documented findings and plan of care Patient Condition at Discharge: Fair Plan - Discharge Summary Discharge Rx Participant: No New Discharge Prescriptions: No Action Naproxen Sodium [Aleve] 440 mg PO BID PRN PRN Reason: Pain Discharge Medication List Naproxen Sodium [Aleve] 440 mg PO BID PRN 09/25/17 [History] Follow up Appointment(s)/Referral(s): Maggy Adorno DO [Primary Care Provider] - 1-2 days Discharge Disposition: - Preliminary Cause of Preliminary Cause of : cardiac arrest
== END 2017-09-27 08:05 | disposition expired | DRG 392 ==
LOC: EC 17:53 → 6SEL 21:19 → 6ICU 09-26 22:46
PROVIDERS: ADMIT Internal Medicine; ATTEND Internal Medicine
PROC: 5A1935Z Respiratory Ventilation, Less than 24 Consecutive Hours (ICD-10-PCS; principal; 2017-09-26)
PROC: 0BH17EZ Insertion of Endotracheal Airway into Trachea, Via Natural or Artificial Opening (ICD-10-PCS; 2017-09-26)
DX: A08.4 Viral intestinal infection, unspecified (principal); E87.1 Hypo-osmolality and hyponatremia; N39.0 Urinary tract infection, site not specified; J44.9 Chronic obstructive pulmonary disease, unspecified; E86.1 Hypovolemia; E87.6 Hypokalemia; Z51.5 Encounter for palliative care; I46.9 Cardiac arrest, cause unspecified; F17.210 Nicotine dependence, cigarettes, uncomplicated; I10 Essential (primary) hypertension; K59.00 Constipation, unspecified; K57.90 Diverticulosis of intestine, part unspecified, without perforation or abscess without bleeding; H91.90 Unspecified hearing loss, unspecified ear; Z93.3 Colostomy status; Z90.49 Acquired absence of other specified parts of digestive tract; Z71.6 Tobacco abuse counseling; Z82.49 Family history of ischemic heart disease and other diseases of the circulatory system; Z66 Do not resuscitate
CPT/HCPCS: 36415; 74018; 80048; 80053; 81001; 82150; 82550; 82553; 83605; 83690; 83735; 83930; 83935; 84100; 84295; 84300; 84484; 85025; 87086; 93005; 94002; 96361; 96365; 96374; 96375; 99285